=== PATIENT | female | born 1975 | race Caucasian/White ===

== ENCOUNTER 2017-09-04 23:54 | Emergency (ER) | payer OTHER ==
[2017-09-05 00:03] VITALS: BP 136/96
--- NOTE | 2017-09-05 00:08 | EDM.PDOC ---
ED HPI GENERAL MEDICAL PROBLEM - General Chief Complaint: Abdominal Pain Stated Complaint: BLOATED FOR 4 DAYS CAN NOT DRINK WATER Time Seen by Provider: 09/05/17 00:05 Source of Information: Reports: Patient History Limitations: Reports: No Limitations - History of Present Illness INITIAL COMMENTS - FREE TEXT/NARRATIVE: 42-year-old female presents the ED with diffuse abdominal bloat to the point that she can't even drink water she feels so full. This is gradually been worsening over the last 3-4 days. Patient has a history of irritable bowel syndrome and usually has 6-12 bowel movements per day depending what she eats. Apparently she had irritable bowel syndrome before she had her gallbladder removed but it's worse since that time. She is on cholestyramine daily. She states that her last bowel movement was around 1400 hrs. yesterday. She doesn't believe she is passing any flatus for the last 8-10 hours. She states she maybe had a little bit of grayish mucus discharge per rectum at 1800 hrs. last evening. She has associated nausea. Pain is constant and mostly periumbilical with occasional intermittent sharp stabbing colicky pains. Associated nausea without vomiting and she hates to throw up Previous abdominal surgeries include a laparoscopic-assisted cholecystectomy and laparoscopic assisted vaginal hysterectomy with retention of her ovaries. She reports she gets diaphoretic intermittently but has no chills or fever. Has not eaten much at all for the last 2 and half days Onset: Gradual Onset Date: 08/31/17 Duration: Day(s): Location: Reports: Abdomen (Gradually increased abdominal bloating with nausea and colicky pains.) Quality: Reports: Other Severity: Moderate (Constant central aching abdominal pain with intermittent colicky pain her pain as 7-8 out of 10.) Improves with: Reports: None Worsens with: Reports: None Context: Reports: Other (Spontaneous occurrence.). Denies: Activity, Exercise, Lifting, Sick Contact, Trauma Associated Symptoms: Reports: Other (Nausea without vomiting) Treatments [employer] EXAMINER: Reports: Other (see below) (None.) Abdominal Pain Score (Numeric/FACES): 8 - Related Data Allergies Allergy/AdvReac Type Severity Reaction Status Date / Time acetaminophen Allergy Rash Verified 09/05/17 00:07 [From Darvocet-N] propoxyphene Allergy Rash Verified 09/05/17 00:07 [From Tarah] Home Meds: Home Meds Albuterol Sulfate [Proair Hfa] 2 inh INH TID 09/05/17 [History] Cholestyramine [Cholestyramine Resin] 5 gm PO DAILY PRN 09/05/17 [History] Desvenlafaxine Succinate [Pristiq ER] 50 mg PO DAILY 09/05/17 [History] Dicyclomine [Bentyl] 10 mg PO TID PRN 09/05/17 [History] Dicyclomine [Bentyl] 20 mg PO Q6H PRN #10 tablet 09/05/17 [Rx] Levothyroxine Sodium [Synthroid] 137 mcg PO ACBREAKFAST 09/05/17 [History] Ondansetron [Zofran] 4 mg BUCCAL Q6H PRN #10 tab 09/05/17 [Rx] QUEtiapine [SEROquel] 100 mg PO QPM 09/05/17 [History] Past Medical History - Past Surgical History GI Surgical History: Reports: Cholecystectomy (Laparoscopic assisted cholecystectomy) Female Surgical History: Reports: Other (See Below) (Laparoscopic-assisted total of vaginal hysterectomy with retention of ovaries) Social & Family History - Tobacco Use Smoking Status *Q: Never Smoker - Alcohol Use Alcohol Use History: Yes Days Per Week of Alcohol Use: 9 Number of Drinks Per Day: 3 Total Drinks Per Week: 27 ED ROS GENERAL - Review of Systems Review Of Systems: See Below Constitutional: Reports: Malaise, Weakness, Diaphoresis, Decreased Appetite ( Can keep anything down as she feels extremely full.). Denies: Fever, Chills HEENT: Reports: No Symptoms Respiratory: Reports: Shortness of Breath (Can take a full deep breath because of abdominal bloating) Cardiovascular: Reports: No Symptoms Endocrine: Reports: Fatigue GI/Abdominal: Reports: Abdominal Pain (Periumbilical), Flatus (Has not been passing flatus for the last 8 hours.), Nausea. Denies: Diarrhea ( pain with strong colicky component associated with gradually worsening abdominal distention over the last 4 days), Vomiting : Reports: No Symptoms Musculoskeletal: Reports: No Symptoms Skin: Reports: Diaphoresis Neurological: Reports: No Symptoms Psychiatric: Reports: No Symptoms Hematologic/Lymphatic: Reports: No Symptoms ED EXAM, GI/ABD - Physical Exam Exam: See Below Exam Limited By: No Limitations General Appearance: Alert, WD/WN, Moderate Distress Eyes: Bilateral: Normal Appearance (No jaundice) Throat/Mouth: Normal Inspection, Normal Lips, Normal Teeth, Normal Oropharynx Head: Atraumatic, Normocephalic Neck: Normal Inspection, Supple, Non-Tender, Full Range of Motion. No: Lymphadenopathy (L), Lymphadenopathy (R) Respiratory/Chest: No Respiratory Distress, Lungs Clear, Chest Non-Tender Cardiovascular: Normal Peripheral Pulses, Regular Rate, Rhythm, No Edema, No Gallop, No Murmur, No Rub, Tachycardia (Resting tachycardia of 10 2/m.) GI/Abdominal Exam: Distended (And mostly dull to percussion. There are areas of) , Abnormal Bowel Sounds ( tympany. fuse hyperactive bowel sounds particularly right-sided. ), Other. No: Guarding, Rigid, Rebound Back Exam: Normal Inspection, Full Range of Motion. No: CVA Tenderness (L), CVA Tenderness (R) Extremities: Normal Inspection, Normal Range of Motion, Non-Tender Neurological: Alert, Oriented, CN II-XII Intact, Normal Cognition Psychiatric: Normal Affect, Normal Mood Skin Exam: Warm, Dry, Intact, Normal Color, No Rash Course - Vital Signs Last Recorded V/S: Last Vital Signs Temp 36.4 C 09/05/17 00:02 Pulse 110 H 09/05/17 00:02 Resp 16 09/05/17 00:02 BP 136/96 H 09/05/17 00:02 Pulse Ox 97 09/05/17 00:02 - Orders/Labs/Meds Orders: Active Orders 24 hr Category Date Time Status Abdomen 1V Flat [CR] Stat Exams 09/05/17 00:30 Taken Abdomen Pelvis w Cont [CT] Stat Exams 09/05/17 01:40 Taken URINALYSIS W/MICROSCOPIC [UA W/MICROSCOPIC] [URIN] Stat Lab 09/05/17 04:41 Ordered Labs: Laboratory Tests 09/05/17 09/05/17 09/05/17 Range/Units 00:21 00:21 00:21 WBC 12.26 H (3.98-10.04) K/mm3 RBC 5.00 (3.98-5.22) M/mm3 Hgb 15.9 H (11.2-15.7) gm/L Hct 46.8 H (34.1-44.9) % MCV 93.6 (79.4-94.8) fl MCH 31.8 (25.6-32.2) pg MCHC 34.0 (32.2-35.5) g/dl RDW Std Deviation 45.7 (36.4-46.3) fL Plt Count 237 (182-369) K/mm3 MPV 9.0 L (9.4-12.3) fl Neutrophils % (Manual) 83 H (40-60) % Band Neutrophils % 0 (0-10) % Lymphocytes % (Manual) 14 L (20-40) % Atypical Lymphs % 0 % Monocytes % (Manual) 1 L (2-10) % Eosinophils % (Manual) 2 (0.7-5.8) % Basophils % (Manual) 0 L (0.1-1.2) Toxic Granulation Few Platelet Estimate Adequate RBC Morph Comment Normal Sodium 138 (136-145) mEq/L Potassium 3.3 L (3.5-5.1) mEq/L Chloride 103 (98-107) mEq/L Carbon Dioxide 23 (21-32) mEq/L Anion Gap 15.3 H (5-15) BUN 8 (7-18) mg/dL Creatinine 1.1 H (0.55-1.02) mg/dL Est Cr Clr Drug Dosing 69.63 mL/min Estimated GFR (MDRD) 54 (>60) mL/min BUN/Creatinine Ratio 7.3 L (14-18) Glucose 116 H (74-106) mg/dL Lactic Acid 1.1 (0.4-2.0) mmol/L Calcium 9.0 (8.5-10.1) mg/dL Total Bilirubin 0.6 (0.2-1.0) mg/dL AST 14 L (15-37) U/L ALT 24 (14-59) U/L Alkaline Phosphatase 100 (46-116) U/L C-Reactive Protein 5.5 H* (<1.0) mg/dL Total Protein 7.7 (6.4-8.2) g/dl Albumin 3.5 (3.4-5.0) g/dl Globulin 4.2 gm/dL Albumin/Globulin Ratio 0.8 L (1-2) Lipase 67 L (73-393) U/L Urine Color (Yellow) Urine Appearance (Clear) Urine pH (5.0-8.0) Ur Specific [place] (1.005-1.030) Urine Protein (Negative) Urine Glucose (UA) (Negative) Urine Ketones (Negative) Urine Occult Blood (Negative) Urine Nitrite (Negative) Urine Bilirubin (Negative) Urine Urobilinogen (0.2-1.0) Ur Leukocyte Esterase (Negative) Urine RBC (0-5) /hpf Urine WBC (0-5) /hpf Ur Epithelial Cells (0-5) /hpf Urine Bacteria (FEW) /hpf Urine Mucus (FEW) /hpf 09/05/17 Range/Units 04:41 WBC (3.98-10.04) K/mm3 RBC (3.98-5.22) M/mm3 Hgb (11.2-15.7) gm/L Hct (34.1-44.9) % MCV (79.4-94.8) fl MCH (25.6-32.2) pg MCHC (32.2-35.5) g/dl RDW Std Deviation (36.4-46.3) fL Plt Count (182-369) K/mm3 MPV (9.4-12.3) fl Neutrophils % (Manual) (40-60) % Band Neutrophils % (0-10) % Lymphocytes % (Manual) (20-40) % Atypical Lymphs % % Monocytes % (Manual) (2-10) % Eosinophils % (Manual) (0.7-5.8) % Basophils % (Manual) (0.1-1.2) Toxic Granulation Platelet Estimate RBC Morph Comment Sodium (136-145) mEq/L Potassium (3.5-5.1) mEq/L Chloride (98-107) mEq/L Carbon Dioxide (21-32) mEq/L Anion Gap (5-15) BUN (7-18) mg/dL Creatinine (0.55-1.02) mg/dL Est Cr Clr Drug Dosing mL/min Estimated GFR (MDRD) (>60) mL/min BUN/Creatinine Ratio (14-18) Glucose (74-106) mg/dL Lactic Acid (0.4-2.0) mmol/L Calcium (8.5-10.1) mg/dL Total Bilirubin (0.2-1.0) mg/dL AST (15-37) U/L ALT (14-59) U/L Alkaline Phosphatase (46-116) U/L C-Reactive Protein (<1.0) mg/dL Total Protein (6.4-8.2) g/dl Albumin (3.4-5.0) g/dl Globulin gm/dL Albumin/Globulin Ratio (1-2) Lipase (73-393) U/L Urine Color Yellow (Yellow) Urine Appearance Clear (Clear) Urine pH 6.5 (5.0-8.0) Ur Specific [place] 1.010 (1.005-1.030) Urine Protein Negative (Negative) Urine Glucose (UA) Negative (Negative) Urine Ketones Trace H (Negative) Urine Occult Blood Negative (Negative) Urine Nitrite Negative (Negative) Urine Bilirubin Negative (Negative) Urine Urobilinogen 0.2 (0.2-1.0) Ur Leukocyte Esterase Negative (Negative) Urine RBC 0-5 (0-5) /hpf Urine WBC 0-5 (0-5) /hpf Ur Epithelial Cells 0-5 (0-5) /hpf Urine Bacteria Few (FEW) /hpf Urine Mucus Not seen (FEW) /hpf Meds: Medications Discontinued Medications Generic Name Dose Route Start Last Admin Trade Name Freq PRN Reason Stop Dose Admin Diatrizoate Meglum/Diatrizoate Sod 90 ml 09/05/17 02:45 09/05/17 03:09 Gastrografin 37% PO 09/05/17 02:46 90 ml ONETIME ONE Administration Dicyclomine HCl 20 mg 09/05/17 04:41 09/05/17 04:45 Bentyl PO 09/05/17 04:42 20 mg ONETIME ONE Administration Hydromorphone HCl 0.5 mg 09/05/17 00:31 09/05/17 00:41 Dilaudid IVPUSH 09/05/17 00:32 0.5 mg ONETIME ONE Administration Hydromorphone HCl 0.5 mg 09/05/17 04:04 09/05/17 04:11 Dilaudid IVPUSH 09/05/17 04:05 0.5 mg ONETIME ONE Administration Dextrose/Sodium Chloride 1,000 mls @ 500 mls/hr 09/05/17 00:15 09/05/17 00:21 Dextrose 5%-Normal Saline IV 500 mls/hr ASDIRECTED WALE Administration Iopamidol 120 ml 09/05/17 02:45 09/05/17 03:09 Isovue-300 (61%) IVPUSH 09/05/17 02:46 120 ml ONETIME ONE Administration Metoclopramide HCl 10 mg 09/05/17 00:31 09/05/17 00:40 Reglan IVPUSH 09/05/17 00:32 10 mg ONETIME ONE Administration - Radiology Interpretation Free Text/Narrative:: 42-year-old female presents the ED with gradually increasing abdominal distention over a period of 4 days. At this time study was unable to keep down a drink of water as it feels like she's going to bring it right back up and she hates to vomit. She has associated nausea and periumbilical pain but with a strong colicky component. Previous abdominal surgery includes laparoscopic- assisted cholecystectomy and laparoscopic-assisted vaginal hysterectomy. On examination her abdomen is distended with hyperactive bowel sounds in all 4 quadrants. It is firm to palpation with occasional areas or pockets of air or tympany. No passed any flatus for about 8 hours. Clinically she has a small bowel obstruction. Plan 1 view the abdomen to be done. IV fluids to be D5 normal saline at open. Given Dilaudid 0.5 mg IV as she reports she is very sensitive to medications. Reglan 10 mg IV. Routine labs including serum lipase to be obtained. - Re-Assessments/Exams Free Text/Narrative Re-Assessment/Exam: 09/05/17 01:20 Labs are back showing no elevated white count of 12.26 with 83% neutrophils and no bands hemoglobin is 15.9 with a hematocrit of 46.8. Platelet count is 237,000. Sodium is 138 with a potassium of 3.3. Chloride is 103 with a bicarbonate of 23. And a gap is 15.3. BUN is 8 with a creatinine of 1.1. Glucose is 116. Lactic acid is 1.1. Bilirubin is 0.6. AST is 14 ALT is 24. Alk phosphatase 100. C-reactive protein is elevated at 5.5. Lipase normal at 67. KUB reveals no signs of bowel obstruction. Scattered air pockets identified in both the large and small bowel. Abdominal girth limits ability to say for sure there is an ileus type pattern. Support underlying infective process such as appendicitis or diverticulitis. She will therefore have CT of the abdomen with oral and IV contrast performed. 09/05/17 03:52 CT of the abdomen and pelvis done with oral and IV contrast. Liver and spleen appear to be normal. Gallbladder is absent. Common bile duct appears to be patulous about 9 mm in diameter. Stomach contains contrast. Duodenal bulb well-visualized. Kidneys appear to be normal without any evidence of obstruction or stones. There is a fair amount of stool throughout the colon. There are few diverticula with no evidence of diverticulitis. Appendix is well- visualized and shows no signs of acute appendicitis. Bladder is noted to fill adequately on delayed films. Essentially normal CT of the abdomen and pelvis with increased stool noted only. Will await the radiologist's report 09/05/17 04:04 pain is certainly come back with crampy colicky pain. Will repeat Dilaudid 0.5 mg IV. 09/05/17 04:25 Vrad report is now back. He believes that there may be some inflammation of the third and fourth portions of the duodenum consistent with duodenitis and antritis of the proximal jejunum. He agrees with normal appendix. He suspects that there is nonspecific retroperitoneal and mesenteric lymphadenopathy as well. Therefore she may well be experiencing a viral gastroenteritis syndrome. I'm therefore going to give her Bentyl 20 mg by mouth. Plan will be to send her home with Bentyl to be used 20 mg every 6 hours when necessary and Zofran 4 mg every 4-6 hours sublingually as needed for nausea relief. Light diet and see how things go over the next 3-5 days. 09/05/17 05:36 urine was passed before the patient was discharged. Urinalysis is normal. Therefore nothing will change. Departure - Departure Time of Disposition: 04:31 Disposition: Home, Self-Care 01 Condition: Fair Clinical Impression: Nonspecific mesenteric adenitis Abdominal pain Qualifiers: Abdominal location: periumbilical Qualified Code(s): R10.33 - Periumbilical pain - Discharge Information Prescriptions: Dicyclomine [Bentyl] 20 mg PO Q6H PRN #10 tablet PRN Reason: Abdominal cramps/diarrhea Ondansetron [Zofran] 4 mg BUCCAL Q6H PRN #10 tab PRN Reason: nausea or vomiting Instructions: Abdominal Pain, Adult, [id number] Referrals: PCP,Not In Area [Primary Care Provider] - Forms: ED Department Discharge Additional Instructions: Evaluation the emergency room tonight in regards to general sense of abdominal bloating for the last 4 days with associated nausea and decreased bowel movements. In fact not aware of passing any flatus for the last 8 hours or more. This became concerning as bowel sounds were very active on examination in the abdomen. Concern was for possible small bowel obstruction. However x-ray of the abdomen did not reveal any signs of obstruction. It showed areas of gas collecting in small and large bowel in pockets. Lab tests revealed a mildly elevated white blood cell count suggesting underlying low-grade infection. Also CRP marker for inflammation is elevated at 5.5 and normal is 1. You were treated with intravenous fluids and antinausea medication Reglan 7.5 mg and Dilaudid 0.5 mg [address] scan of the head was done with oral and IV contrast. It suggested that there was a low-grade inflammation in the first part of the small bowel called the duodenum. This would be a viral inflammation. It also suggested several small lymph nodes in the retroperitoneal ever area which we call these enteric adenitis. It can cause abdominal pain and sometimes mimic appendicitis. However your appendix is well- visualized on CT scan and there is no evidence of active infection in the colon. This appears to be a viral infection that can often last 4-10 days. Diet is to be mostly clear fluids things that are easy to digest. Soup broth turkey noodle chicken rice soup etc. Gatorade Powerade for fluids to prevent dehydration Zofran 4 mg may be used under the tongue every 4-6 hours needed for nausea relief. Bentyl 20 mg may be used every 6 hours needed for relief of abdominal pain and/or discomfort. Note you're likely going to get a couple of loose stools after the oral contrast works its way through your bowel this morning. I would expect you to be improved by Friday. If not I would suggest follow-up with your personal physician. - My Orders Last 24 Hours: My Active Orders 09/05/17 00:30 Abdomen 1V Flat [CR] Stat 09/05/17 01:40 Abdomen Pelvis w Cont [CT] Stat 09/05/17 04:41 URINALYSIS W/MICROSCOPIC [UA W/MICROSCOPIC] [URIN] Stat - Assessment/Plan Last 24 Hours: My Active Orders 09/05/17 00:30 Abdomen 1V Flat [CR] Stat 09/05/17 01:40 Abdomen Pelvis w Cont [CT] Stat 09/05/17 04:41 URINALYSIS W/MICROSCOPIC [UA W/MICROSCOPIC] [URIN] Stat
[2017-09-05] MEDS ORDERED: Dextrose 5%-0.9% NaCl 1,000 ML IV SCH (00:15)
[2017-09-05] MEDS ORDERED: HYDROmorphone 0.5 MG/0.5 ML SYRINGE IVPUSH ONE ×2 (00:31→04:04)
[2017-09-05] MEDS ORDERED: Metoclopramide 10 MG/2 ML SDV IVPUSH ONE (00:31)
[2017-09-05] MEDS ORDERED: Diatrizoate Meglumine/Diatrizoate Sodium 37% 120 ML Bottle PO ONE (02:45)
[2017-09-05] MEDS ORDERED: Iopamidol 612 MG/ML 150 ML Bottle IVPUSH ONE (02:45)
[2017-09-05] MEDS ORDERED: Dicyclomine 10 MG Cap PO ONE (04:41)
--- NOTE | 2017-09-05 08:25 | CR ---
Abdomen: Supine view of the abdomen was obtained. Comparison: No previous study. Surgical clips are seen from previous cholecystectomy. Bowel gas pattern is normal. No abnormal calcifications or soft tissue abnormality is seen. No bony abnormality is seen. Impression: 1. Unremarkable supine abdominal x-ray. Diagnostic code #2
--- NOTE | 2017-09-05 08:25 | CT ---
CT abdomen and pelvis Technique: Multiple axial sections were obtained from above the dome of the diaphragm inferiorly through the pubic symphysis. Intravenous and oral contrast was utilized. Delayed images were obtained through the bladder. Comparison: Prior abdominal x-ray performed on the same day (12:36 AM). Findings: Visualized lung bases show nothing acute. Liver shows mild fatty infiltration without focal abnormality. Spleen appears within normal limits. Adrenal glands show no nodule. Previous cholecystectomy is noted. Mild inflammatory change is identified around the fourth portion of the duodenum most likely due to duodenitis. Pancreas appears within normal limits. Slightly prominent retroperitoneal lymph nodes are noted. This may relate to the duodenitis. Aorta shows no aneurysmal dilatation. No retroperitoneal adenopathy or mesenteric abnormalities are seen. Kidneys show symmetric contrast enhancement without hydronephrosis or mass. No mesenteric abnormalities are seen. No pelvic mass or adenopathy is noted. No free fluid is seen. Delayed images show contrast within the distal ureters and within the bladder. Appendix is seen which is normal in size. Bone window settings were reviewed which appear within normal limits for the patient's age. Small fat-containing umbilical hernia is seen. Impression: 1. Minimal inflammatory change around the fourth portion of the duodenum most likely due to duodenitis. 2. Slightly prominent retroperitoneal lymph nodes most likely relating to the duodenitis. 3. Other incidental findings. Diagnostic code #3 I agree with preliminary report from [facility], finalized at 09/05/17, 5:17 AM Central Time
== END 2017-09-05 04:49 | disposition home or self-care (01) ==
LOC: JD.ED 23:54
DX: I88.0 Nonspecific mesenteric lymphadenitis (principal); Z88.6 Allergy status to analgesic agent; Z88.8 Allergy status to other drugs, medicaments and biological substances; Z79.899 Other long term (current) drug therapy
CPT/HCPCS: 36415; 74018; 74177; 80053; 81001; 83605; 83690; 85007; 85027; 86140; 96361; 96374; 96375; 96376; 99284; A9270; J1170; J2765; J7042; Q9963; Q9967